=== PATIENT | female | born 1960 | race Caucasian/White ===

== ENCOUNTER → 2020-10-02 | Outpatient (CLI) | payer OTHER | END | disposition home or self-care (01) | LOC: EDUNIT# 09-26 13:00 → RAH 12:48 | PROVIDERS: ATTEND Family Medicine | DX: I65.23 Occlusion and stenosis of bilateral carotid arteries (principal); I87.2 Venous insufficiency (chronic) (peripheral); M79.89 Other specified soft tissue disorders; E11.9 Type 2 diabetes mellitus without complications | CPT/HCPCS: 93880; 93925; 93971 ==

== ENCOUNTER 2020-11-21 07:10 | Day surgery (SDC) | payer OTHER ==
[2020-11-19 16:34] LABS: BASOPHILS % (AUTO) 0.5 % (0.0-5.0); EOSINOPHILS % (AUTO) 0.6 % (0.0-8.0); HEMATOCRIT 37.4 % (36-48); LYMPHOCYTES % (AUTO) 28.4 % (21.0-51.0); MEAN CORPUSCULAR HEMOGLOBIN 36.4 pg (27.0-33.0); MEAN CORPUSCULAR HGB CONC 35.6 g/dL (32.0-36.0); MEAN CORPUSCULAR VOLUME 102.5 fL (79-99); MONOCYTES % (AUTO) 9.3 % (3.0-13.0); NEUTROPHILS % (AUTO) 60.1 % (40.0-77.0); NUCLEATED RED BLOOD CELLS 0.2 % (0.0-0.19); PLATELET COUNT (AUTO) 292 K/uL (130-400); RED BLOOD CELL COUNT(AUTO) 3.65 MIL/uL (4.00-5.50); RED CELL DISTRIBUTION WIDTH 14.6 % (11.0-15.5); WHITE BLOOD COUNT (AUTO) 9.4 K/uL (4.8-10.8)
[2020-11-19 16:48] LABS: APPEARANCE,URINE Cloudy (CLEAR); BILIRUBIN,URINE Small (NEGATIVE); COLOR,URINE Dark Yellow (YELLOW); GLUCOSE, URINE (UA) >=1000 mg/dL (NEGATIVE); KETONES,URINE Trace mg/dL (NEGATIVE); LEUKOCYTE ESTERASE ,URINE Trace (NEGATIVE); NITRATE,URINE Negative (NEGATIVE); OCCULT BLOOD,URINE Negative (NEGATIVE); PROTEIN,URINE POS 2+ mg/dL (NEGATIVE)
[2020-11-19 16:51] LABS: CREATININE 1.2 mg/dL (0.5-1.5)
[2020-11-19 16:55] LABS: INR 0.94 (0.85-1.15); PROTHROMBIN TIME 10.3 SEC (9.6-11.6)
[2020-11-19 16:56] LABS: PARTIAL THROMBOPLASTIN TIME 23.9 SEC (26.3-35.5)
[2020-11-19 17:19] LABS: BACTERIA,URINE Few /HPF (None Seen); RBC,URINE None Seen /HPF (0-1)
[2020-11-19 18:25] LABS: POTASSIUM 2.8 mmol/L (3.5-5.1)
[2020-11-20 12:16] VITALS: BP 135/76
[~2020-11-21] VITALS: Ht 162.6 cm; Wt 89.3 kg
[~2020-11-21 07:10] MED LIST: AMLO-257 PO; ASPI-1197 PO; ATOR40TA69 PO; BUPR200T34 PO; CHOL100040 PO; ESCI20TA38 PO; FLUD0.1T2 PO; GABA-533 PO; HYDR12.54 PO; HYDR28OI10 PO; LEVO75CA5 PO; MAGN400T25 PO; METF-444 PO; MIDO2.5T PO; POTA10CA44 PO; TIZA4CAP8 PO
[2020-11-21 07:40] VITALS: BP 117/76
[2020-11-21] MEDS ORDERED: SODIUM CHLORIDE 0.9% 1000ML 1,000 ML IV ONE (08:07)
[2020-11-21] MEDS ORDERED: INSULIN HUMULIN R 100 UNIT/ML 3ML ONE (09:04)
[2020-11-21] MEDS: POTASSIUM CHLORIDE 20 MEQ ERTAB PO SCH ×2 (09:31→11:46)
[2020-11-21] MEDS ORDERED: SUCRALFATE 1 GM TABLET PO SCH (11:00)
[2020-11-21 11:30] VITALS: BP 139/84
[2020-11-21] MEDS ORDERED: INSULIN HUMULIN R 100 UNIT/ML 3ML SQ SCH ×2 (11:30→12:00)
== END 2020-11-21 12:10 | disposition home or self-care (01) ==
LOC: DAH 07:10
PROVIDERS: ATTEND Internal Medicine Cardiovascular Disease
DX: I70.213 Atherosclerosis of native arteries of extremities with intermittent claudication, bilateral legs (principal); E11.51 Type 2 diabetes mellitus with diabetic peripheral angiopathy without gangrene; I10 Essential (primary) hypertension; E78.5 Hyperlipidemia, unspecified; E11.59 Type 2 diabetes mellitus with other circulatory complications; E66.9 Obesity, unspecified; Z79.82 Long term (current) use of aspirin; Z79.01 Long term (current) use of anticoagulants; Z79.899 Other long term (current) drug therapy; Z98.890 Other specified postprocedural states; Z68.32 Body mass index [BMI] 32.0-32.9, adult; Z98.891 History of uterine scar from previous surgery; Z82.49 Family history of ischemic heart disease and other diseases of the circulatory system; Z53.8 Procedure and treatment not carried out for other reasons
CPT/HCPCS: 36415 ×2; 71045; 80048; 81001; 82948; 84132; 85025; 85610; 85730; 93005; A4215; A4216; A4221; A4222; A4223 ×3; A4606; A4663; J1815; J7030

== ENCOUNTER → 2021-03-18 | Outpatient (CLI) | payer OTHER ==
[~2021-03-18] MED LIST changes: -AMLO-257 PO; -HYDR12.54 PO; -POTA10CA44 PO
== END | disposition home or self-care (01) ==
LOC: RAH 11:03
PROVIDERS: ATTEND Physical Medicine & Rehabilitation
DX: M47.816 Spondylosis without myelopathy or radiculopathy, lumbar region (principal); M48.062 Spinal stenosis, lumbar region with neurogenic claudication
CPT/HCPCS: 72148